=== PATIENT | female | born 1970 | race Caucasian/White ===

== ENCOUNTER → 2016-10-17 | Outpatient (CLI) | payer MEDICARE ==
[~2016-10-17] MED LIST: ALLEGRA30 MG PO; ATENOLOL25 MG PO; ATIVAN 1MG T1 MG/TAB PO; BENADRYL25 M2; BENADRYL25 M2 PO; FLEXERIL 1010 MG/TAB PO; GABAPENTIN100 M1 PO; LORAZEPAM2 MG PO; LORTAB 5/500 501 TAB PO; MAGNESIUM500 MG PO; MULTI VITAMINS1 TAB PO; NORCO 325 MG-51 TAB PO; NORCO 325 MG-7.1 TAB PO; OCELLA 3 MG-0.01 TAB PO; OMEGA 31000 MG PO; PERCOCET 325 MG1 TA3 PO; PERCOCET 5/321 UDTAB PO; PROBIOTIC FORMU1 CAP PO; PROVENTIL0.09 MG/A1 IH; PROZAC 10MG10 MG PO; RITE AID NATU200 MCG PO; RYBIX ODT50 MG PO; SYMBICORT1 AER; TOPAMAX 100MG100 M1 PO; TOPAMAX100 MG PO; TOPAMAX50 MG PO; ULTRAM50 MG PO; VALTREX1 GM PO; VENTOLIN0.09 MG IH; VITAMIN D1000 IU PO; WELLBUTRIN XL150 MG PO; ZINC15 M1 PO; [UNRECOGNIZED DRUG - REMARK]
== END ==
LOC: BHSO 14:11
DX: F25.1 Schizoaffective disorder, depressive type (principal)

== ENCOUNTER → 2016-11-15 | Outpatient (CLI) | payer MEDICARE | LOC: BHSO 14:50 | DX: F25.1 Schizoaffective disorder, depressive type (principal) ==

== ENCOUNTER → 2016-12-16 | Outpatient (CLI) | payer MEDICARE | LOC: BHSO 14:36 | DX: F06.32 Mood disorder due to known physiological condition with major depressive-like episode (principal) ==

== ENCOUNTER → 2017-03-17 | Outpatient (CLI) | payer MEDICARE | LOC: BHSO 14:17 | DX: F41.1 Generalized anxiety disorder (principal) ==

== ENCOUNTER → 2017-03-31 | Outpatient (CLI) | payer MEDICARE | LOC: COL.RAD 12:15 | DX: M48.02 Spinal stenosis, cervical region (principal); M47.812 Spondylosis without myelopathy or radiculopathy, cervical region; G60.9 Hereditary and idiopathic neuropathy, unspecified; R20.2 Paresthesia of skin ==

== ENCOUNTER 2017-06-16 15:45 | Outpatient (RCR) | payer MEDICARE | END 2017-06-19 14:08 | disposition home or self-care (01) | LOC: WSPT 15:45 | DX: M54.2 Cervicalgia (principal) | CPT/HCPCS: G8981-GP; G8982-GP; G8983-GP ==

== ENCOUNTER → 2017-07-25 | Outpatient (CLI) | payer MEDICARE | LOC: BHSO 14:50 | DX: F41.1 Generalized anxiety disorder (principal) | CPT/HCPCS: G0463 ==

== ENCOUNTER → 2017-08-21 | Outpatient (CLI) | payer MEDICARE | LOC: MHCPAIN 11:32 | DX: G89.29 Other chronic pain (principal); M47.812 Spondylosis without myelopathy or radiculopathy, cervical region; R51 Headache; G62.9 Polyneuropathy, unspecified | CPT/HCPCS: G0463 ==

== ENCOUNTER → 2017-09-07 | Outpatient (CLI) | payer MEDICARE | LOC: MHCPAIN 13:20 | DX: M50.322 Other cervical disc degeneration at C5-C6 level (principal) ==

== ENCOUNTER → 2017-09-13 | Outpatient (CLI) | payer MEDICARE | LOC: MHCPAIN 13:39 | DX: G89.29 Other chronic pain (principal); M50.90 Cervical disc disorder, unspecified, unspecified cervical region; R51 Headache; G60.9 Hereditary and idiopathic neuropathy, unspecified; Z87.891 Personal history of nicotine dependence | CPT/HCPCS: G0463 ==

== ENCOUNTER → 2017-10-05 | Outpatient (CLI) | payer MEDICARE | LOC: MHCPAIN 10:15 | DX: M50.322 Other cervical disc degeneration at C5-C6 level (principal) ==

== ENCOUNTER → 2017-10-11 | Outpatient (CLI) | payer MEDICARE | LOC: MHCPAIN 14:41 | DX: G89.29 Other chronic pain (principal); M50.30 Other cervical disc degeneration, unspecified cervical region; R51 Headache; G60.9 Hereditary and idiopathic neuropathy, unspecified; Z87.891 Personal history of nicotine dependence | CPT/HCPCS: G0463 ==

== ENCOUNTER → 2017-10-30 | Outpatient (CLI) | payer MEDICARE | LOC: COL.RAD 11:37 | DX: R93.422 Abnormal radiologic findings on diagnostic imaging of left kidney (principal); R31.9 Hematuria, unspecified; M54.9 Dorsalgia, unspecified; Z96.0 Presence of urogenital implants ==

== ENCOUNTER → 2017-11-23 | Outpatient (CLI) | payer MEDICARE | LOC: MHCPAIN 08:57 | DX: M50.322 Other cervical disc degeneration at C5-C6 level (principal) | CPT/HCPCS: J1100; J2250; J3010 ==

== ENCOUNTER → 2017-11-28 | Outpatient (CLI) | payer MEDICARE | LOC: MHCPAIN 12:36 | DX: G89.29 Other chronic pain (principal); M50.90 Cervical disc disorder, unspecified, unspecified cervical region; R51 Headache; G62.9 Polyneuropathy, unspecified | CPT/HCPCS: G0463 ==

== ENCOUNTER → 2017-12-07 | Outpatient (CLI) | payer MEDICARE | LOC: MHCPAIN 10:05 | DX: M47.812 Spondylosis without myelopathy or radiculopathy, cervical region (principal) ==

== ENCOUNTER → 2017-12-12 | Outpatient (CLI) | payer MEDICARE | LOC: MHCPAIN 14:58 | DX: G89.29 Other chronic pain (principal); M50.322 Other cervical disc degeneration at C5-C6 level; R51 Headache | CPT/HCPCS: G0463 ==

== ENCOUNTER → 2018-01-11 | Outpatient (CLI) | payer MEDICARE | LOC: MHCPAIN 12:06 | DX: M47.812 Spondylosis without myelopathy or radiculopathy, cervical region (principal); M50.322 Other cervical disc degeneration at C5-C6 level | CPT/HCPCS: J1100; J2250; J3010 ==

== ENCOUNTER → 2018-02-13 | Outpatient (CLI) | payer MEDICARE | LOC: BHSO 13:54 | DX: F41.1 Generalized anxiety disorder (principal) | CPT/HCPCS: G0463 ==

== ENCOUNTER → 2018-04-18 | Outpatient (CLI) | payer MEDICARE | LOC: BHSO 13:12 | DX: F41.1 Generalized anxiety disorder (principal) | CPT/HCPCS: G0463 ==

== ENCOUNTER → 2018-08-02 | Outpatient (CLI) | payer MEDICARE | LOC: BHSO 14:35 | DX: F25.1 Schizoaffective disorder, depressive type (principal) | CPT/HCPCS: G0463 ==

== ENCOUNTER → 2018-10-31 | Outpatient (CLI) | payer MEDICARE | LOC: BHSO 14:55 | DX: F41.1 Generalized anxiety disorder (principal) | CPT/HCPCS: G0463 ==

== ENCOUNTER → 2019-05-10 | Outpatient (CLI) | payer MEDICARE | LOC: BHSO 14:11 | DX: F41.1 Generalized anxiety disorder (principal) | CPT/HCPCS: G0463 ==

== ENCOUNTER → 2019-08-13 | Outpatient (CLI) | payer MEDICARE | LOC: BHSO 14:34 | DX: F41.1 Generalized anxiety disorder (principal) | CPT/HCPCS: G0463 ==

== ENCOUNTER → 2020-02-18 | Outpatient (CLI) | payer MEDICARE | LOC: BHSO 15:20 | DX: F41.1 Generalized anxiety disorder (principal) ==

== ENCOUNTER → 2021-03-11 | Outpatient (CLI) | payer MEDICARE | LOC: MC.RAD 12:57 | DX: Z12.31 Encounter for screening mammogram for malignant neoplasm of breast (principal) ==

== ENCOUNTER → 2021-08-27 | Outpatient (CLI) | payer MEDICARE | LOC: COL.VAS 12:18 | DX: R06.02 Shortness of breath (principal) ==

== ENCOUNTER → 2023-10-11 | Outpatient (CLI) | payer MEDICARE ==
[~2023-10-11] MED LIST changes: +Gadoterate 20 ML VIAL IV ONE
== END ==
LOC: COL.RAD 07:00
DX: M54.50 Low back pain, unspecified (principal); M62.81 Muscle weakness (generalized); G89.29 Other chronic pain; R51.9 Headache, unspecified; R20.2 Paresthesia of skin
CPT/HCPCS: A9575